=== PATIENT | male | born 1965 | race Caucasian/White ===

== ENCOUNTER 2018-03-13 21:52 | Emergency (ER) | payer MEDICARE, SELFPAY ==
[2018-03-13 21:53] VITALS: BP 114/71; PULSE 78; RESP 14; TEMP 37.1; O2SAT 98; BMI 28.3
--- NOTE | 2018-03-13 22:08 | RAD_ITS ---
STUDY: X-RAY - RIGHT WRIST REASON FOR EXAM: Male, 52 years old. Pain after a fall. TECHNIQUE: 3 view(s) of the wrist were obtained. COMPARISON: None. FINDINGS: Lateral view shows a sliver of bone density approximately 5 mm in length and 1 mm thick. This is most consistent with a displaced avulsion fracture of the triquetral. No other acute abnormalities. No other fractures. No dislocations. Prominent dorsal soft tissue swelling. RAD/Wrist min 3 Views IMPRESSION: Probable displaced tiny fracture off of the dorsal carpals, probably the triquetral. Electronically Signed: Steve Renteria MD at 22:34 EDT , Service support ,
--- NOTE | 2018-03-13 22:10 | RAD_ITS ---
STUDY: X-RAY - RIGHT RADIUS AND ULNA REASON FOR EXAM: Male, 52 years old. Right wrist pain. Fall. TECHNIQUE: 2 view(s) of the forearm. COMPARISON: None. FINDINGS: There is no demonstrated soft tissue swelling. Normal visualized radius. Normal visualized ulna. There is no demonstrated acute fracture. RAD/Forearm 2 Views IMPRESSION: Normal x-ray examination of the radius and ulna. Electronically Signed: Steve Renteria MD at 22:32 EDT , Service support ,
--- NOTE | 2018-03-13 22:47 | ED.DCSUM_ITS ---
- ER Visit Summary Date of Service: 03/13/18 Chief Complaint: [Right wrist] History of Present Illness: The patient is a 52 M [presents the emergency department with complaint of injury to his right wrist after sustaining a fall around 7 PM. Patient states that he ran into the garage to avoid the rain and slipped on a wet floor landing on his right arm and wrist. Patient is right- hand dominant. Patient denies any other injuries. He denies any neck pain, chest pain, or abdominal pain.] Physical Examination: [HEENT-PERRLA, EOMI. Cranial nerves II through XII grossly intact. TMs clear. Mucous membranes moist. No adenopathy. Cardiovascular-regular rate and rhythm without murmur or ectopy Lungs-clear to auscultation, chest wall stable without crepitus or subcu emphysema Abdomen-normoactive bowel sounds, soft, nontender, no rebound or rigidity, no peritoneal signs. Extremities-intact ?4, normal range of motion, normal pulses. Right upper extremity-patient has some mild tenderness diffusely about the mid forearm and tenderness over the wrist diffusely. Patient has pain with flexion extension at the wrist. He is neurovascular intact distally with normal station normal cap refill. Normal flexion extension of all digits. Test Results: [X-rays of the right forearm and right wrist obtained. X-rays of the forearm were negative for fracture. X-rays of the right wrist showed a small avulsion fracture off the triquetral bone.] Emergency Department Course and Treatment: [Patient will be given a wrist splint and will be started on [place] for pain] Treatment Plan: [[place] for pain orthopedic referral] Disposition: [Discharged home in stable condition] Impression: [Right wrist fracture status post fall] This note was generated with [employer] dictation software. It may contain incorrect words, spelling, and punctuation that were not noted in review of the chart prior to signing ED Disposition - Plan for ED Patient: Chief Complaint: Upper Extremity Injury Referrals: Care Physician,No Primary [Primary Care Provider] -
--- NOTE | 2018-03-13 22:48 | ED.DEP ---
ED Disposition - Plan for ED Patient: Chief Complaint: Upper Extremity Injury Instructions: ED Fx Wrist General Prescriptions: Hydrocodone/Acetaminophen [[place] 5-325 Tablet] 1 ea PO 4X/DAY PRN PRN 5 Days #20 tab PRN Reason: Pain Referrals: Care Physician,No Primary [Primary Care Provider] - Terry Lauren DO [STAFF PHYSICIAN] - 3-5 Days
--- NOTE | 2018-03-13 22:50 | DCINST.ED_ITS ---
ED Disposition - Plan for ED Patient: Chief Complaint: Upper Extremity Injury Instructions: ED Fx Wrist General Prescriptions: Hydrocodone/Acetaminophen [[place] 5-325 Tablet] 1 ea PO 4X/DAY PRN PRN 5 Days # 20 tab PRN Reason: Pain Referrals: Care Physician,No Primary [Primary Care Provider] - Terry Lauren DO [STAFF PHYSICIAN] - 3-5 Days
[2018-03-13] MEDS: HYDROcodone Bitartrate/Apap 5/325 Tablet PO (22:58)
== END 2018-03-13 23:00 | disposition home or self-care (01) ==
PROVIDERS: Emergency Provider Emergency Medicine
DX: S62.101A Fracture of unspecified carpal bone, right wrist, initial encounter for closed fracture (principal); W01.198A Fall on same level from slipping, tripping and stumbling with subsequent striking against other object, initial encounter; Y93.9 Activity, unspecified; Y92.008 Other place in unspecified non-institutional (private) residence as the place of occurrence of the external cause; Y99.9 Unspecified external cause status; I10 Essential (primary) hypertension; Z72.0 Tobacco use
CPT/HCPCS: 73090; 73110; 99283